=== PATIENT | female | born 1990 | race Caucasian/White ===

== ENCOUNTER 2019-09-06 10:32 | Emergency (ER) | payer BC, SELFPAY ==
[2019-09-06 10:35] VITALS: BP 130/79; PULSE 105; RESP 20; TEMP 36.4; O2SAT 97; BMI 20.9
--- NOTE | 2019-09-06 10:37 | ED_ITS ---
Entered by Karen Rodríguez, acting as scribe for Ravi Daigle MD HPI - Abdominal Pain General: Chief Complaint: Abdominal Pain Stated Complaint: Abd pain Time Seen by Provider: 09/06/19 10:35 Source: patient and family Mode of arrival: ambulatory Limitations: no limitations History of Present Illness: HPI narrative: 28 yo female presents with abdomen pain. pt states this started 3 days ago. pt states the pain was sudden and has not stopped. pt states nothing makes this better and movement makes this worse. pt has a hx of ovarian cyst, celiac repair at [facility]. MD elicited complaint: abdominal pain Onset (ago): day(s) (3 days) Location: Periumbilical Severity: moderate Migration to: periumbilical Exacerbating factors: movement Relieving factors: nothing Associated Symptoms: Denies chills, diarrhea, dysuria, fever(s), nausea and vomiting Review of Systems Const: Denies: fever, chills, body aches or change in appetite Eyes: Denies: blurry vision or eye discomfort ENMT: Denies: throat pain or dental pain Card: Denies: chest pain Resp: Denies: shortness of breath GI: Denies: nausea, vomiting or diarrhea : Denies: painful urination Musc: Denies: neck pain or back pain Skin/Breast: Denies: rash Neuro: Denies: headache Psych: Denies: depression [place]/Lymph: Denies: easy bruising All/Imm: Denies: hives PFSH ED PFSH: Statuses (acute, chronic, etc) shown below reflect problem list status as previously entered and may not be historically accurate Social History Smoking and tobacco status: never smoked Physical Exam Const: COMMON NORMALS: no apparent distress, oriented x3 and healthy appearing HENMT: COMMON NORMALS: normocephalic and head/scalp atraumatic HEAD & SCALP: normocephalic and atraumatic Eye: COMMON NORMALS: PERRL and EOMs intact bilaterally PUPIL: Yes PERRL Neck/C-Spine: COMMON NORMALS: full ROM and supple Chest: COMMONS NORMALS: inspection of chest normal and palpation of chest normal Resp: COMMON NORMALS: normal respiratory effort, no retractions, no use of accessory muscles and clear to auscultation bilaterally AUSCULTATION: clear to auscultation bilaterally Cardio: COMMON NORMALS: regular rate, regular rhythm and no murmurs RATE: regular rate RHYTHM: regular rhythm GI: OTHER: diffuse tenderness Extremity: COMMON NORMALS: normal to inspection and full ROM Neuro: COMMON NORMALS: oriented x3, moves all extremities and no focal motor deficits Psych: COMMON NORMALS: mental status grossly normal, thought process normal and cooperative THOUGHT PROCESS: normal thought process Skin: COMMON NORMALS: no rashes or lesions noted and no wounds GENERAL SKIN EXAM: no rashes or lesions noted Course Vital Signs: Vital signs: Vital Signs Temperature 97.4 F L 09/06/19 13:25 Pulse Rate 77 09/06/19 13:25 Respiratory Rate 16 09/06/19 13:25 Blood Pressure 130/74 09/06/19 13:25 Pulse Oximetry 99 09/06/19 13:25 MDM - Abdominal Pain 2 MDM Narrative: Medical decision making narrative: Patient presents here with abdominal pain. CT shows ovarian cyst with no signs of torsion here. Patient's lab work is normal and she is well-appearing. Patient is stable for discharge and is to return if worsening. Lab Data: Labs: Lab Results 09/06/19 09/06/19 09/06/19 Range/Units 11:00 11:00 11:13 WBC 5.1 (4.0-10.0) 10^3/ uL RBC 4.28 (4.1-5.3) 10^6/u L Hgb 13.3 (11.5-15.3) g/dL Hct 40.6 (37.0-47.0) % MCV 94.9 (81-99) fL MCH 31.1 (28.0-34.0) pg MCHC 32.8 (30.0-36.0) g/dL RDW 11.3 L (12.1-15.1) % Plt Count 191 (130-400) 10^3/c mm MPV 10.9 H (7.4-10.4) fL Neut % (Auto) 70.7 % Lymph % (Auto) 19.3 % [place] % (Auto) 8.6 % Eos % (Auto) 0.4 % Baso % (Auto) 0.8 % Neut # (Auto) 3.6 (1.8-7.7) 10^3/u L Lymph # (Auto) 1.0 (0.8-4.8) 10^3/u L [place] # (Auto) 0.4 (0.2-0.9) 10^3/u L Eos # (Auto) 0.0 (0.0-0.8) 10^3/u L Baso # (Auto) 0.0 (0.0-0.1) 10^3/u L Nucleated RBC % (a uto) 0 % Nucleated RBCs # 0.0 /100WBC Sodium (136-145) mmol/L Potassium (3.5-5.1) mmol/L Chloride (98-107) mmol/L Carbon Dioxide (22-29) mmol/L Anion Gap (5-19) BUN (6-20) mg/dL Creatinine (0.5-0.9) mg/dL GFR Calculation (90-130) mL/min Glucose (74-109) mg/dL Calcium (8.5-10.5) mg/dL Total Bilirubin (0.15-1.2) mg/dL AST (0-32) U/L ALT (0-33) U/L Alkaline Phosphata se (35-105) IU/L Total Protein (6.6-8.7) g/dL Albumin (3.5-5.2) g/dL Globulin (1.3-4.6) g/dL Lipase (13-60) U/L HCG, Qual Negative (Negative) Urine Color Yellow (Yellow) Urine Appearance Sl hazy (CLEAR) Urine pH 7 (5-7) Ur Specific Gravit y 1.010 (1.005-1.030) Urine Protein Neg (Negative) Urine Glucose (UA) Norm (Normal) Urine Ketones Negative (Negative) Urine Occult Blood Neg (Negative) Urine Nitrate Negative (Negative) Urine Bilirubin Neg (NEGATIVE) Urine Urobilinogen Norm (Negative) mg/dL Ur Leukocyte Melissa ase Negative (Negative) Urine RBC None (0-2) /hpf Urine WBC Rare (0-5) /hpf Ur Squamous Epith Cells 15-25 H (0-5) Urine Bacteria 1+ H (NONE) Urine Mucus 1+ 09/06/19 Range/Units 11:13 WBC (4.0-10.0) 10^3/ uL RBC (4.1-5.3) 10^6/u L Hgb (11.5-15.3) g/dL Hct (37.0-47.0) % MCV (81-99) fL MCH (28.0-34.0) pg MCHC (30.0-36.0) g/dL RDW (12.1-15.1) % Plt Count (130-400) 10^3/c mm MPV (7.4-10.4) fL Neut % (Auto) % Lymph % (Auto) % [place] % (Auto) % Eos % (Auto) % Baso % (Auto) % Neut # (Auto) (1.8-7.7) 10^3/u L Lymph # (Auto) (0.8-4.8) 10^3/u L [place] # (Auto) (0.2-0.9) 10^3/u L Eos # (Auto) (0.0-0.8) 10^3/u L Baso # (Auto) (0.0-0.1) 10^3/u L Nucleated RBC % (a uto) % Nucleated RBCs # /100WBC Sodium 141 (136-145) mmol/L Potassium 4.7 (3.5-5.1) mmol/L Chloride 104 (98-107) mmol/L Carbon Dioxide 24 (22-29) mmol/L Anion Gap 17.7 (5-19) BUN 9 (6-20) mg/dL Creatinine 0.8 (0.5-0.9) mg/dL GFR Calculation 86.7 L (90-130) mL/min Glucose 88 (74-109) mg/dL Calcium 9.9 (8.5-10.5) mg/dL Total Bilirubin 0.6 (0.15-1.2) mg/dL AST 15 (0-32) U/L ALT 10 (0-33) U/L Alkaline Phosphata se 63 (35-105) IU/L Total Protein 7.7 (6.6-8.7) g/dL Albumin 4.8 (3.5-5.2) g/dL Globulin 2.9 (1.3-4.6) g/dL Lipase 21 (13-60) U/L HCG, Qual (Negative) Urine Color (Yellow) Urine Appearance (CLEAR) Urine pH (5-7) Ur Specific Gravit y (1.005-1.030) Urine Protein (Negative) Urine Glucose (UA) (Normal) Urine Ketones (Negative) Urine Occult Blood (Negative) Urine Nitrate (Negative) Urine Bilirubin (NEGATIVE) Urine Urobilinogen (Negative) mg/dL Ur Leukocyte Melissa ase (Negative) Urine RBC (0-2) /hpf Urine WBC (0-5) /hpf Ur Squamous Epith Cells (0-5) Urine Bacteria (NONE) Urine Mucus Imaging Data ^: CT Chest: Radiologist's impression: Ordering Provider/Ordering MD: Ravi Daigle MD Date of Service: 09/06/19 Procedure(s): CT abdomen pelvis w con* [id number] Accession Number(s): [id number] Report Number: [id number] PROCEDURE INFORMATION: Exam: CT Abdomen And Pelvis With Contrast Exam date and time: 09/06/2019 10:47 AM Age: 28 years old Clinical indication: Abdominal pain; Prior surgery; Surgery type: Gb. Appy. Celiac; Patient HX: Generalized abd pain x 4 days TECHNIQUE: Imaging protocol: Computed tomography of the abdomen and pelvis with intravenous contrast. Total DLP: 540.58 mGy-cm Radiation optimization: All CT scans at this facility use at least one of these dose optimization techniques: automated exposure control; mA and/or kV adjustment per patient size (includes targeted exams where dose is matched to clinical indication); or iterative reconstruction. Contrast material: OMNI 300; Contrast volume: 95 ml; Contrast route: 20G; COMPARISON: CT abdomen pelvis w con* [id number] 03/24/2017 3:41 PM FINDINGS: Lungs: The visualized lung bases are grossly clear. Liver: No mass. Gallbladder and bile ducts: The gallbladder surgically absent. Interval decrease of intrahepatic and extrahepatic biliary ductal dilation. Pancreas: No ductal dilation. Spleen: No splenomegaly. Adrenals: No mass. Kidneys and ureters: No hydronephrosis. Stomach and bowel: There are multiple nondilated fluid-filled loops of small bowel with mild wall thickening. Appendix: The appendix is not visualized and surgically absent per report. Intraperitoneal space: No free air. No significant fluid collection. Vasculature: Unchanged soft tissue attenuation at the level of the celiac artery with atherosclerotic calcifications and adjacent left periaortic metallic clip. Lymph nodes: There are scattered non-patholigically enlarged mesenteric lymph nodes, which may be reactive. Bladder: Unremarkable as visualized. Reproductive: There is an ovoid 2.1 cm hypodense focus with peripheral enhancement within the right adnexa, likely within the right ovary (image 70, series 2). Bones/joints: There are no acute osseous findings. Soft tissues: Unremarkable. CT/CT abdomen pelvis w con* [id number] IMPRESSION: 1. Scattered nondilated fluid-filled loops of small bowel with mild scattered wall thickening. Findings can be seen with nonspecific enteritis. There is no evidence of bowel obstruction. 2. Scattered non-patholigically enlarged mesenteric lymph nodes, which may be reactive or refelct a component of mesenteric adenitis. 3. Ovoid 2.1 cm hypodense focus with peripheral enhancement within the right adnexa, likely reflecting a cyst within the right ovary. If right adnexal symptoms are present, ultrasound could be performed. 4. Additional findings as detailed above. Discharge Plan Discharge Patient Disposition: Home, Self-Care Clinical Impression: Ovarian cyst Abdominal pain Qualifiers: Abdominal location: right lower quadrant Qualified Code(s): R10.31 - Right lower quadrant pain Condition: Stable Prescriptions: New Zofran 4 mg tablet 4 mg PO QID PRN (Reason: nausea and vomiting) Qty: 14 RF: 0 Tylenol-Codeine #3 300-30 mg tablet 1 tab PO Q8H PRN (Reason: pain) Qty: 20 RF: 0 No Action clindamycin phosphate 1 % swab 1 applic TOPICAL BID RF: 0 Vitamin D2 1,250 mcg (50,000 unit) capsule 50,000 unit PO Q7D RF: 0 Discharge Orders: Discharge Order (Routine); Ordered 09/06/19 Ordered By: Ravi Daigle Referrals: Bill Philippe FNP [Primary Care Provider] - William Genao MD [Family Provider] - 4-7 days Discharge Diet: Advance as tolerated Discharge Activity: Resume usual activity Patient Instructions: Ovarian Cyst (ED), Abdominal Pain (ED) Discharge Date/Time: 09/06/19 13:25 Coding Level of Care Code ED Digital Media Specialist for Chg Fwd Exam Problem Focused The documentation recorded by the Marcos moran Bridget Annette, accurately reflects the service I personally performed and the decisions made by Oxana pickett Korby, MD Sep 06, 2019 10:32
--- NOTE | 2019-09-06 10:40 | CTR_ITS ---
PROCEDURE INFORMATION: Exam: CT Abdomen And Pelvis With Contrast Exam date and time: 09/06/2019 10:47 AM Age: 28 years old Clinical indication: Abdominal pain; Prior surgery; Surgery type: Gb. Appy. Celiac; Patient HX: Generalized abd pain x 4 days TECHNIQUE: Imaging protocol: Computed tomography of the abdomen and pelvis with intravenous contrast. Total DLP: 540.58 mGy-cm Radiation optimization: All CT scans at this facility use at least one of these dose optimization techniques: automated exposure control; mA and/or kV adjustment per patient size (includes targeted exams where dose is matched to clinical indication); or iterative reconstruction. Contrast material: OMNI 300; Contrast volume: 95 ml; Contrast route: 20G; COMPARISON: CT abdomen pelvis w con* [id number] 03/24/2017 3:41 PM FINDINGS: Lungs: The visualized lung bases are grossly clear. Liver: No mass. Gallbladder and bile ducts: The gallbladder surgically absent. Interval decrease of intrahepatic and extrahepatic biliary ductal dilation. Pancreas: No ductal dilation. Spleen: No splenomegaly. Adrenals: No mass. Kidneys and ureters: No hydronephrosis. Stomach and bowel: There are multiple nondilated fluid-filled loops of small bowel with mild wall thickening. Appendix: The appendix is not visualized and surgically absent per report. Intraperitoneal space: No free air. No significant fluid collection. Vasculature: Unchanged soft tissue attenuation at the level of the celiac artery with atherosclerotic calcifications and adjacent left periaortic metallic clip. Lymph nodes: There are scattered non-patholigically enlarged mesenteric lymph nodes, which may be reactive. Bladder: Unremarkable as visualized. Reproductive: There is an ovoid 2.1 cm hypodense focus with peripheral enhancement within the right adnexa, likely within the right ovary (image 70, series 2). Bones/joints: There are no acute osseous findings. Soft tissues: Unremarkable. CT/CT abdomen pelvis w con* [id number] IMPRESSION: 1. Scattered nondilated fluid-filled loops of small bowel with mild scattered wall thickening. Findings can be seen with nonspecific enteritis. There is no evidence of bowel obstruction. 2. Scattered non-patholigically enlarged mesenteric lymph nodes, which may be reactive or refelct a component of mesenteric adenitis. 3. Ovoid 2.1 cm hypodense focus with peripheral enhancement within the right adnexa, likely reflecting a cyst within the right ovary. If right adnexal symptoms are present, ultrasound could be performed. 4. Additional findings as detailed above. Radiation Dose CTDIVOL = (mGy): DLP = 540.58 (mGy-cm)
[2019-09-06 11:09] LABS: HCG Qualitative Urine. Negative (Negative)
[2019-09-06] MEDS: sodium chloride 0.9% 1,000 ML 999 ML IV (11:20)
[2019-09-06 11:21] LABS: Basophils % 0.8 %; Eosinophils % 0.4 %; Hematocrit 40.6 % (37.0-47.0); Hemoglobin 13.3 g/dL (11.5-15.3); Lymphocytes % 19.3 %; Mean Corpuscular HGB Conc 32.8 g/dL (30.0-36.0); Mean Corpuscular Hemoglobin 31.1 pg (28.0-34.0); Mean Corpuscular Volume 94.9 fL (81-99); Mean Platelet Volume 10.9 fL (7.4-10.4); Monocytes # 0.4 10^3/uL (0.2-0.9); Monocytes % 8.6 %; Neutrophils # 3.6 10^3/uL (1.8-7.7); Neutrophils % 70.7 %; Nucleated Red Blood Cells % 0 %; Platelet Count 191 10^3/cmm (130-400); Red Blood Count 4.28 10^6/uL (4.1-5.3); Red Cell Distribution Width 11.3 % (12.1-15.1); White Blood Count 5.1 10^3/uL (4.0-10.0)
[2019-09-06] MEDS: ondansetron 2 mg/ML SDV 2 mL 4 MG IVP (11:26)
[2019-09-06] MEDS: iohexol 300 mg/mL 100 mL Btl IV (11:32)
[2019-09-06 11:38] LABS: Add Urine Microscopic? YES; Bilirubin Urine Neg (NEGATIVE); Blood Urine Neg (Negative); Glucose Urine UA Norm (Normal); Ketones Urine Negative (Negative); Leukocyte Esterase Urine Negative (Negative); Nitrate Urine Negative (Negative); Protein Urine Neg (Negative); Urine Appearance SL Hazy (CLEAR); Urine Color Yellow (Yellow); Urobilinogen Urine Norm (Negative); pH Urine 7 (5-7)
[2019-09-06 11:38] LABS: Alanine Aminotransferase 10 U/L (0-33); Albumin Level 4.8 g/dL (3.5-5.2); Alkaline Phosphatase 63 IU/L (35-105); Anion Gap 17.7 (5-19); Aspartate Amino Transferase 15 U/L (0-32); Blood Urea Nitrogen 9 mg/dL (6-20); Calcium 9.9 mg/dL (8.5-10.5); Carbon Dioxide 24 mmol/L (22-29); Chloride 104 mmol/L (98-107); Globulin 2.9 g/dL (1.3-4.6); Glomerular Filtration Rate 86.7 mL/min (90-130); Glucose 88 mg/dL (74-109); Lipase 21 U/L (13-60); Potassium 4.7 mmol/L (3.5-5.1); Sodium 141 mmol/L (136-145); Total Bilirubin 0.6 mg/dL (0.15-1.2); Total Protein 7.7 g/dL (6.6-8.7)
[2019-09-06 11:39] LABS: Bacteria Urine 1+; Mucus Urine 1+; Squamous Epithelial Cell Urine 15-25 (0-5); WBC Urine RARE /hpf (0-5)
[2019-09-06 11:40] LABS: Add Urine Culture? No
[2019-09-06 12:15] VITALS: BP 130/79; PULSE 72; RESP 16; TEMP 36.4; O2SAT 98
[2019-09-06] MEDS: promethazine 25 mg/mL SDV 1 mL IV (13:18)
[2019-09-06 13:25] VITALS: BP 130/74; PULSE 77; RESP 16; TEMP 36.3; O2SAT 99
== END 2019-09-06 13:25 | disposition home or self-care (01) ==
PROVIDERS: Emergency Provider Emergency Medicine; Family Provider Family Medicine; PCP Nurse Practitioner Family
DX: N83.201 Unspecified ovarian cyst, right side (principal)
CPT/HCPCS: 36415; 74177; 80053; 81001; 81025; 83690; 85025; 96360; 96361; 96365; 96374; 96375; 99282; 99283; A9270; J0131; J2405; J2550; J7030; Q9967

== ENCOUNTER → 2019-10-01 08:41 | Outpatient (BNVA) | payer BC, SELFPAY | PROVIDERS: Family Provider Family Medicine; PCP Nurse Practitioner Family; Visit Provider Registered Nurse | DX: R69 Illness, unspecified (principal); R09.81 Nasal congestion; R68.89 Other general symptoms and signs | CPT/HCPCS: 87804 ==

== ENCOUNTER 2021-04-03 09:37 | Outpatient (CLI) | payer BC, SELFPAY ==
[2021-04-03 09:57] LABS: D Dimer 0.48 ug/mIFEU (0-0.59)
== END 2021-04-03 09:38 | disposition home or self-care (01) ==
PROVIDERS: PCP Family Medicine; Visit Provider Nurse Practitioner Family
DX: R06.02 Shortness of breath (principal)
CPT/HCPCS: 85378

== ENCOUNTER 2021-11-07 11:18 | Emergency (ER) | payer BC, SELFPAY ==
[2021-11-07 11:24] VITALS: BP 136/73; PULSE 143; RESP 24; TEMP 36.8; O2SAT 96; BMI 21.1
--- NOTE | 2021-11-07 11:31 | CT_ITS ---
WS: [id number] CT ABDOMEN PELVIS TECHNIQUE: Contrast-enhanced CT of the abdomen and pelvis with coronal and sagittal reformatted image s. CLINICAL INFORMATION: eval for pathologies COMPARISON: CT September 24, 2019 DLP: 954.[address] scans at [facility] use at least one of these dose optimization techniques: automated e xposure control; mA and/or kV adjustment per patient size (includes targeted exams where dose is matc hed to clinical indication); or iterative reconstruction. FINDINGS: Prior cholecystectomy and appendectomy. Mild diffuse fatty infiltration liver. Mild intrahepatic bili yoan ductal dilatation. This is likely physiologic postcholecystectomy. Mild prominence of the common bile duct measuring 7.8 mm. Normal portal vein and splenic vein. Normal pancreatic parenchymal enhanc ement. Normal spleen. Lung bases are well aerated. Air-fluid level in the stomach. Fluid-filled distended loops of small bowel within the pelvis. Findings can be seen with mild small b owel enteritis. No evidence of high-grade obstruction. Mild constipation in the cecum. Colon is decom pressed. Normal sigmoid colon. LEFT ovarian cyst measuring 3.1 x 3.3 CM. Small amount of fluid in the cul-de-sac. Retroflexed uterus. Celiac artery stent. Celiac and SMA appear patent. CT/CT abdomen pelvis w con* [id number] IMPRESSION: 1. A few slightly distended fluid-filled loops of small bowel in the pelvis ca n be seen with small bowel enteritis. No evidence of high-grade obstruction. A few air-fluid levels. 2. Peripherally enhancing LEFT ovarian cyst measuring 3.3 x 3.1 CM. Small amou nt of free fluid in the cul-de-sac. 3. Retroflexed uterus. 4. Mild diffuse fatty infiltration of the liver. 5. Prior cholecystectomy. Dilatation common bile duct likely physiologic postc holecystectomy. 6. Celiac artery stent. Celiac and SMA appear patent. 7. No hydronephrosis in either kidney.
--- NOTE | 2021-11-07 11:40 | W.ED.GENADLT ---
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 Patient was at home when pain started. Patient describing a stabbing intermittent colicky pain that has been persistent and nonrelieving. Patient denies any nausea/vomiting diarrhea, melena/hematochezia. Patient has not had any stool or bowel movement since yesterday. Patient denies any similar pain the past for denies any chest pain, shortness of breath and palpitations. Onset: 9pm Duration:15 hrs Location:home Severity:moderate Associated symptoms: Deny chest pain, dyspnea, nausea, rash, palpitations or vomiting Review of Systems Const: Denies: fever(s) or chills Eyes: Denies: change in vision ENMT: Denies: mouth pain Card: Denies: chest pain or palpitations Resp: Denies: dyspnea or non-productive cough GI: Reports: abdominal pain; Denies: nausea, vomiting or diarrhea : Denies: dysuria Musc: Denies: extremity pain Skin/Breast: Denies: rash or new lesions Neuro: Denies: weakness in extremities Psych: Reports: other (Normal mood) Crispin/Lymph: Denies: easy bruising PFSH ED PFSH: Medical History No pertinent past medical history neghx: htn,dm,thyroid,PE/DVT Surgical History History of laparotomy (~2008) graft replaced median arcuate ligament Hx of appendectomy (~2012) Hx of cholecystectomy (~2014) Hx of laparoscopy (~2008) release of median arcuate ligament Family History Mother Hypertension Father Hypertension Grandmother Hypertension Maternal Denies family history of Colon cancer Ovarian cancer Diabetes Heart disease Breast cancer Bleeding disorder Uterine cancer Thyroid disease Stroke Social History Additional social history: - Tobacco use: Never Alcohol use: Never Drug use: Never Physical Exam Const: COMMON NORMALS: alert HENMT: COMMON NORMALS: atraumatic HEAD & SCALP: atraumatic MOUTH: moist mucous membranes not abnormal Eye: COMMON NORMALS: EOMs intact bilaterally and conjunctivae normal CONJUNCTIVA: Yes conjunctivae normal Neck/C-Spine: COMMON NORMALS: full ROM and supple Resp: COMMON NORMALS: normal respiratory effort and clear to auscultation bilaterally AUSCULTATION: clear to auscultation bilaterally Cardio: COMMON NORMALS: regular rate RATE: regular rate GI: COMMON NORMALS: Soft to palpation PALPATION: Yes Soft to palpation OTHER: +generalized abd TTP. +voluntary guarding. NO guarding rebound, guarding, rigidity. No CVA tenderness to percussion. Neg Wolf/Neg McBurney's point tenderness, no suprabupic tenderness to palpation. Extremity: COMMON NORMALS: full ROM Neuro: SENSORIUM/ORIENTATION: Yes alert MOTOR EXAM: No Abnormal motor strength present and Other motor observations present (no focal motor deficits) Psych: COMMON NORMALS: speech normal SPEECH: Yes normal speech MOOD & AFFECT: Yes euthymic mood Course Vital Signs: Vital signs: Vital Signs Temperature 98.2 F 11/07/21 11:24 Pulse Rate 143 H 11/07/21 11:24 Respiratory Rate 22 H 11/07/21 12:00 Blood Pressure 136/73 11/07/21 11:24 Pulse Oximetry 96 11/07/21 11:[address] [facility] - General Adult Medical Decision Making 30-year-old female with history of prior cholecystectomy, prior appendectomy, prior ex lap, intussusception presenting to the emergency room for evaluation of generalized abdominal pain since 9 PM yesterday. On physical exam, patient has diffuse tenderness palpation globally in the abdomen. Patient has voluntary guarding without any involuntary guarding rebound tenderness. Bedside ultrasound did not show positive fast or free air. Patient received morphine IVF with significant improvement in heart rate. CT abdomen pelvis showed small bowel enteritis. Patient's heart rate improved with 2 L of fluid. Patient is no able to tolerate p.o. after GI cocktail. Patient reports that her abdominal pain has improved. Rx tylenol PRN abd pain, maalox/pepcid PRN dyspepsia, and zofran PRN nausea/vomiting Disposition: Discharge. Patient counseled regarding diagnostic impression, treatment plan. Patient given ED strict return precautions to return for continuation, worsening, or development of new symptoms. Instructed to f/u w/ PCP regarding symptoms today. Patient verbalized understanding. Lab Data : 11/07/21 11:53 11/07/21 11:53 Radiology Impressions Abdomen/Pelvis CT 11/07/21 11:31 IMPRESSION: 1. A few slightly distended fluid-filled loops of small bowel in the pelvis can be seen with small bowel enteritis. No evidence of high-grade obstruction. A few air-fluid levels. 2. Peripherally enhancing LEFT ovarian cyst measuring 3.3 x 3.1 CM. Small amount of free fluid in the cul-de-sac. 3. Retroflexed uterus. 4. Mild diffuse fatty infiltration of the liver. 5. Prior cholecystectomy. Dilatation common bile duct likely physiologic postcholecystectomy. 6. Celiac artery stent. Celiac and SMA appear patent. 7. No hydronephrosis in either kidney. Laboratory Results WBC 8.6 10^3/uL (4.0-10.0) 11/07/21 11:53 RBC 4.56 10^6/uL (4.1-5.3) 11/07/21 11:53 Hgb 14.9 g/dL (11.5-15.3) 11/07/21 11:53 Hct 43.5 % (37.0-47.0) 11/07/21 11:53 MCV 95.4 fl (81-99) 11/07/21 11:53 MCH 32.7 pg (28.0-34.0) 11/07/21 11:53 MCHC 34.3 g/dL (30.0-36.0) 11/07/21 11:53 RDW 11.9 % (12.1-15.1) L 11/07/21 11:53 Plt Count 174 10^3/cmm (130-400) 11/07/21 11:53 MPV 10.9 fL (7.4-10.4) H 11/07/21 11:53 Neut % (Auto) 90.7 % 11/07/21 11:53 Lymph % (Auto) 3.0 % 11/07/21 11:53 [place] % (Auto) 5.6 % 11/07/21 11:53 Eos % (Auto) 0.1 % 11/07/21 11:53 Baso % (Auto) 0.2 % 11/07/21 11:53 Neut # (Auto) 7.77 10^3/uL (1.8-7.7) H 11/07/21 11:53 Lymph # (Auto) 0.3 10^3/uL (0.8-4.8) L 11/07/21 11:53 [place] # (Auto) 0.5 10^3/uL (0.2-0.9) 11/07/21 11:53 Eos # (Auto) 0.0 10^3/uL (0.0-0.8) 11/07/21 11:53 Baso # (Auto) 0.0 10^3/uL (0.0-0.1) 11/07/21 11:53 Nucleated RBC % (auto) 0 % 11/07/21 11:53 Nucleated RBCs # 0.0 /100WBC 11/07/21 11:53 Sodium 138 mmol/L (136-145) 11/07/21 11:53 Potassium 3.7 mmol/L (3.5-5.1) 11/07/21 11:53 Chloride 106 mmol/L (98-107) 11/07/21 11:53 Carbon Dioxide 19 mmol/L (22-29) L 11/07/21 11:53 Anion Gap 16.7 (5-19) 11/07/21 11:53 BUN 11 mg/dL (6-20) 11/07/21 11:53 Creatinine 0.7 mg/dL (0.5-0.9) 11/07/21 11:53 GFR Calculation 99.6 mL/min (90-130) 11/07/21 11:53 Glucose 106 mg/dL (65-115) 11/07/21 11:53 Calculated Osmolality 286 mOsm/kg (285-295) 11/07/21 11:53 Lactate 0.9 mmol/L (0.5-2.2) 11/07/21 12:30 Calcium 8.7 mg/dL (8.5-10.5) 11/07/21 11:53 Total Bilirubin 1.0 mg/dL (0.15-1.2) 11/07/21 11:53 AST 92 U/L (0-32) H 04/05/22 11:53 ALT 45 U/L (0-33) H 11/07/21 11:53 Alkaline Phosphatase 84 IU/L (35-105) 11/07/21 11:53 Total Protein 6.7 g/dL (6.6-8.7) 11/07/21 11:53 Albumin 4.5 g/dL (3.5-5.2) 11/07/21 11:53 Globulin 2.2 g/dL (1.3-4.6) 11/07/21 11:53 Lipase 21 U/L (13-60) 11/07/21 11:53 HCG, Qual Negative (Negative) 11/07/21 11:53 Discharge Plan Discharge Clinical Impression: Abdominal pain Condition: Stable Prescriptions: No Action [place] 5-325 mg Tablet 1 tab PO .ONCE 0RF minocycline 100 mg capsule 100 mg PO QPM 0RF Aleve 220 mg Tablet 440 mg PO Q12H PRN (Reason: Pain) 0RF Vitamin D3 125 mcg (5,000 unit) Tablet 125 mcg PO QPM 0RF Referrals: William Genao MD [Primary Care Provider] - Patient Instructions: Abdominal Pain (ED) Coding Level of Care Code ED Assistant Boiler Operator for Chg Fwd Exam Comprehensive
[2021-11-07] MEDS: sodium chloride 0.9% 1,000 ML 999 ML IV ×2 (11:45→13:00)
[2021-11-07 12:00] VITALS: RESP 22
[2021-11-07] MEDS: ondansetron 2 mg/ML SDV 2 mL 4 MG IVP (12:00)
[2021-11-07] MEDS: morphine 4 mg/mL SDV 1 mL IVP (12:00)
[2021-11-07 12:06] LABS: Basophils % 0.2 %; Eosinophils % 0.1 %; Hematocrit 43.5 % (37.0-47.0); Hemoglobin 14.9 g/dL (11.5-15.3); Lymphocytes # 0.3 10^3/uL (0.8-4.8); Mean Corpuscular HGB Conc 34.3 g/dL (30.0-36.0); Mean Corpuscular Hemoglobin 32.7 pg (28.0-34.0); Mean Corpuscular Volume 95.4 fl (81-99); Mean Platelet Volume 10.9 fL (7.4-10.4); Monocytes # 0.5 10^3/uL (0.2-0.9); Monocytes % 5.6 %; Neutrophils # 7.77 10^3/uL (1.8-7.7); Neutrophils % 90.7 %; Nucleated Red Blood Cells % 0 %; Platelet Count 174 10^3/cmm (130-400); Red Blood Count 4.56 10^6/uL (4.1-5.3); Red Cell Distribution Width 11.9 % (12.1-15.1); White Blood Count 8.6 10^3/uL (4.0-10.0)
[2021-11-07 12:32] LABS: HCG, Serum Qual Negative (Negative)
[2021-11-07 12:42] LABS: Alanine Aminotransferase 45 U/L (0-33); Albumin Level 4.5 g/dL (3.5-5.2); Alkaline Phosphatase 84 IU/L (35-105); Anion Gap 16.7 (5-19); Aspartate Amino Transferase 92 U/L (0-32); Blood Urea Nitrogen 11 mg/dL (6-20); Calcium 8.7 mg/dL (8.5-10.5); Carbon Dioxide 19 mmol/L (22-29); Chloride 106 mmol/L (98-107); Creatinine Clr Calc Pharmacy 116.0798; Globulin 2.2 g/dL (1.3-4.6); Glomerular Filtration Rate 99.6 mL/min (90-130); Glucose 106 mg/dL (65-115); Lipase 21 U/L (13-60); Osmolality Calculated 286 mOsm/kg (285-295); Potassium 3.7 mmol/L (3.5-5.1); Sodium 138 mmol/L (136-145); Total Protein 6.7 g/dL (6.6-8.7)
[2021-11-07] MEDS: iohexol 300 mg/mL 100 mL Btl IV (12:49)
[2021-11-07 12:56] LABS: Lactate (Lactic Acid level) 0.9 mmol/L (0.5-2.2)
[2021-11-07 13:49] VITALS: BP 109/59; PULSE 118; RESP 20; O2SAT 96
[2021-11-07] MEDS: lidocaine 2% viscous 15 ML, aluminum-mag hydrox-simethicon 30 ML, sucralfate oral liq 1 GM PO (13:52)
[2021-11-07 14:20] VITALS: BP 112/56; PULSE 107; RESP 15; O2SAT 97
[2021-11-07 14:38] VITALS: BP 105/59; PULSE 87; RESP 14; O2SAT 96
[2021-11-07 14:42] VITALS: BP 105/59; PULSE 98; RESP 13; O2SAT 97
[2021-11-07 15:00] LABS: Urine Appearance Clear (CLEAR); Urine Color Yellow (Yellow)
[2021-11-07 15:01] LABS: Add Urine Culture? No; Add Urine Microscopic? YES; Bilirubin Urine 1+ (Negative); Blood Urine Neg (Negative); Glucose Urine UA Norm (Normal); Ketones Urine 2+ (Negative); Leukocyte Esterase Urine Negative (Negative); Nitrate Urine Negative (Negative); Protein Urine Trace (Negative); Specific Gravity, Urine 1.005 (1.005-1.030); Urobilinogen Urine 4 mg/dL (Negative); pH Urine 6.5 (5-7)
== END 2021-11-07 14:51 | disposition home or self-care (01) ==
PROVIDERS: Emergency Provider Emergency Medicine; PCP Family Medicine
DX: R10.84 Generalized abdominal pain (principal); K76.0 Fatty (change of) liver, not elsewhere classified; N83.202 Unspecified ovarian cyst, left side; Z90.49 Acquired absence of other specified parts of digestive tract
CPT/HCPCS: 74177; 80053; 81001; 83605; 83690; 84703; 85025; 96361; 96374; 96375; 99284; J2270; J2405; J7030; Q9967

== ENCOUNTER → 2021-11-08 11:12 | Outpatient (BNVA) | payer BC, SELFPAY | PROVIDERS: PCP Family Medicine; Visit Provider Registered Nurse | DX: K52.9 Noninfective gastroenteritis and colitis, unspecified (principal) | CPT/HCPCS: 87493; 87506 ==

== ENCOUNTER 2021-11-11 15:30 | Inpatient (IN) | payer BC, SELFPAY ==
[2021-11-11 15:37] VITALS: BP 107/65; PULSE 110; RESP 22; TEMP 36.6; O2SAT 97; BMI 21.1
--- NOTE | 2021-11-11 15:51 | CTR_ITS ---
PROCEDURE INFORMATION: Exam: CT Abdomen And Pelvis With Contrast Exam date and time: 11/11/2021 4:44 PM Age: 30 years old Clinical indication: Abdominal pain; Generalized; Prior surgery; Surgery date: 6+ months; Surgery type: Gb, appy; Patient HX: C/O abd pain x 1 week TECHNIQUE: Imaging protocol: Computed tomography of the abdomen and pelvis with contrast. Radiation optimization: All CT scans at this facility use at least one of these dose optimization techniques: automated exposure control; mA and/or kV adjustment per patient size (includes targeted exams where dose is matched to clinical indication); or iterative reconstruction. Contrast material: OMNI 300; Contrast volume: 95 ml; Contrast route: INTRAVENOUS (IV); COMPARISON: CT abdomen pelvis w con* [id number] 11/07/2021 12:49 PM RADIATION DOSE METRICS: Total DLP (mGy-cm): 943.46 FINDINGS: Tubes, catheters and devices: Surgical clip in the upper left retropharyngeal space. Liver: Normal. No mass. Gallbladder and bile ducts: Cholecystectomy. Stable mild dilatation of the intrahepatic and extrahepatic bile ducts is most likely reservoir effect. The common bile duct measures 8 mm in diameter. Pancreas: Normal. No ductal dilation. Spleen: Normal. No splenomegaly. Adrenal glands: Normal. No mass. Kidneys and ureters: Normal. No hydronephrosis. Stomach and bowel: Fluid-filled loops of distal small bowel with a few small air-fluid levels. No obstruction or wall thickening. The stomach and colon are unremarkable. Appendix: The appendix is absent. Intraperitoneal space: Unremarkable. No free air. No significant fluid collection. Arteries: Unremarkable. No abdominal aortic aneurysm. Lymph nodes: Unremarkable. No enlarged lymph nodes. Urinary bladder: Unremarkable as visualized. Reproductive: Tampon in the vagina. 2.0 cm fibroid in the lower right uterine segment. 2.4 cm dominant left ovarian follicle, Hounsfield units less than 20. The right ovary is unremarkable. Bones/joints: Unremarkable. No acute fracture. Soft tissues: Linear radiopaque density along the superior margin of the proximal celiac artery could relate to previous median arcuate ligament release. No significant stenosis. CT/CT abdomen pelvis w con* [id number] IMPRESSION: 1. Fluid-filled loops of distal small bowel is nonspecific. Mild enteritis is not excluded. 2. Otherwise no acute abnormality identified.
--- NOTE | 2021-11-11 15:53 | W.ED.ABDPA2 ---
HPI - Abdominal Pain General: Chief Complaint: Abdominal Pain Stated Complaint: severe abdominal pain Time Seen by Provider: 11/11/21 15:36 Source: patient Mode of arrival: ambulatory Limitations: no limitations History of Present Illness: 30-year-old female presents emergency room with complaints of abdominal pain persistent nausea with some vomiting persistent diarrhea denies any hematochezia. She denies any dysuria urgency or frequency. She was seen [address] showed some mild enteritis and she was started on minocycline. She states while it was not on her allergy list she evidently had had problems with it before so she had a telehealth visit with her primary care nurse practitioner and was changed to Flagyl. She continues to have persistent diarrhea nausea and vomiting. At the time of the telehealth visit patient had stool cultures done all of which have resulted as well as the C. difficile and all of which are negative. No fever sweats chills patient complaining of severe cramping. On 11/07 when she was here her transaminases were slightly elevated but her T bili was normal. MD elicited complaint: abdominal pain Onset (ago): day(s) (-) Pain Consistency: constant Location: Diffuse Severity: severe Quality: cramping Radiation: none Migration to: no migration Exacerbating factors: nothing Relieving factors: nothing Associated Symptoms: Reports anorexia, bloating, GI cramping, diarrhea, nausea and poor appetite; Denies belching, change in bowel habits, change in stool character, chills, coffee ground emesis, constipation, dyspepsia, dysuria, excessive flatus, fever(s), heartburn, hematochezia, hematuria, hematemesis, fecal incontinence, loose stools, melena, syncope and vomiting Review of Systems Const: Reports: body aches, change in appetite, fatigue and malaise; Denies: fever(s) or chills ENMT: Denies: throat pain, ear or mastoid pain, nasal discharge or nasal congestion Card: Denies: chest pain or syncope Resp: Denies: dyspnea, productive cough or non-productive cough GI: Reports: abdominal pain, nausea, diarrhea, bloating and GI cramping; Denies: vomiting, hematemesis, coffee ground emesis, heartburn, constipation, belching, excessive flatus, fecal incontinence, change in bowel habits, change in stool character, hematochezia or melena : Denies: flank pain, difficulty voiding, dysuria, urinary frequency, urinary urgency or hematuria Skin/Breast: Denies: rash or pruritus PFSH ED PFSH: Medical History No pertinent past medical history neghx: htn,dm,thyroid,PE/DVT Surgical History History of laparotomy (~2008) graft replaced median arcuate ligament Hx of appendectomy (~2012) Hx of cholecystectomy (~2014) Hx of laparoscopy (~2008) release of median arcuate ligament Family History Mother Hypertension Father Hypertension Grandmother Hypertension Maternal Denies family history of Colon cancer Ovarian cancer Diabetes Heart disease Breast cancer Bleeding disorder Uterine cancer Thyroid disease Stroke Social History Additional social history: - Tobacco use: Never Alcohol use: Never Drug use: Never Physical Exam Const: COMMON NORMALS: no acute distress GENERAL APPEARANCE: cooperative and comfortable ORIENTATION/CONSCIOUSNESS: Yes awake, Yes oriented to person, Yes oriented to place and Yes oriented to time HENMT: COMMON NORMALS: normocephalic, atraumatic and hearing grossly normal bilaterally HEAD & SCALP: normocephalic and atraumatic Neck/C-Spine: COMMON NORMALS: no JVD Resp: COMMON NORMALS: normal respiratory effort, No retractions, No use of accessory muscles and clear to auscultation bilaterally AUSCULTATION: clear to auscultation bilaterally Cardio: COMMON NORMALS: no JVD, regular rate, regular rhythm and No murmurs present (Cardio) RATE: regular rate RHYTHM: regular rhythm GI: COMMON NORMALS: No hepatosplenomegaly present AUSCULTATION: Yes Hyperactive bowel sounds present PALPATION: Yes Tenderness to palpation present (GI) (Diffuse), No Guarding due to palpation present (GI) and Yes No hepatosplenomegaly present : COMMON NORMALS: Yes no CVA tenderness BLADDER/KIDNEY EXAM: Yes no CVA tenderness Back/Pelvis: COMMON NORMALS: no CVA tenderness Extremity: COMMON NORMALS: normal to inspection, capillary refill normal, no clubbing, cyanosis or edema, no calf tenderness and no pedal edema Neuro: SENSORIUM/ORIENTATION: Yes oriented to person, Yes oriented to place and Yes oriented to time Skin: COMMON NORMALS: no rashes or lesions noted GENERAL SKIN EXAM: no rashes or lesions noted Course Vital Signs: Vital signs: Vital Signs Temperature 98.2 F 11/12/21 20:00 Pulse Rate 70 11/12/21 20:00 Respiratory Rate 17 11/12/21 20:00 Blood Pressure 106/69 11/12/21 20:00 Pulse Oximetry 96 11/12/21 20:00 MDM - Abdominal Pain Medical Decision Making Patient continues to have severe abdominal pain and cramping given her several liters of fluid as well as morphine and antiemetics. CT is unremarkable her ALT is slightly increased but her AST has improved her T bili remains normal. Stool cultures and C. difficile done 3 days ago are unremarkable. She is afebrile at this time. After discussion with her we will go ahead and put her on observation clear liquid diet IV fluids and pain medications as needed discussed with hospitalist orders written to place in observation Medical Records I reviewed the patient's medical records. Lab Data I reviewed the patient's lab results. : 11/12/21 03:25 11/12/21 03:25 Labs/Radiology: Radiology Impressions Abdomen/Pelvis CT 11/11/21 15:51 IMPRESSION: 1. Fluid-filled loops of distal small bowel is nonspecific. Mild enteritis is not excluded. 2. Otherwise no acute abnormality identified. Laboratory Results WBC 2.9 10^3/uL (4.0-10.0) L 11/11/21 16:05 RBC 4.31 10^6/uL (4.1-5.3) 11/11/21 16:05 Hgb 13.7 g/dL (11.5-15.3) 11/11/21 16:05 Hct 40.5 % (37.0-47.0) 11/11/21 16:05 MCV 94.0 fl (81-99) 11/11/21 16:05 MCH 31.8 pg (28.0-34.0) 11/11/21 16:05 MCHC 33.8 g/dL (30.0-36.0) 11/11/21 16:05 RDW 11.7 % (12.1-15.1) L 11/11/21 16:05 Plt Count 208 10^3/cmm (130-400) 11/11/21 16:05 MPV 11.0 fL (7.4-10.4) H 11/11/21 16:05 Neut % (Auto) 55.5 % 11/11/21 16:05 Lymph % (Auto) 26.2 % 11/11/21 16:05 [place] % (Auto) 16.2 % 11/11/21 16:05 Eos % (Auto) 1.4 % 11/11/21 16:05 Baso % (Auto) 0.7 % 11/11/21 16:05 Neut # (Auto) 1.61 10^3/uL (1.8-7.7) L 11/11/21 16:05 Lymph # (Auto) 0.8 10^3/uL (0.8-4.8) 11/11/21 16:05 [place] # (Auto) 0.5 10^3/uL (0.2-0.9) 11/11/21 16:05 Eos # (Auto) 0.0 10^3/uL (0.0-0.8) 11/11/21 16:05 Baso # (Auto) 0.0 10^3/uL (0.0-0.1) 11/11/21 16:05 Nucleated RBC % (auto) 0 % 11/11/21 16:05 Nucleated RBCs # 0.0 /100WBC 11/11/21 16:05 Sodium 138 mmol/L (136-145) 11/11/21 16:05 Potassium 3.9 mmol/L (3.5-5.1) 11/11/21 16:05 Chloride 103 mmol/L (98-107) 11/11/21 16:05 Carbon Dioxide 25 mmol/L (22-29) 11/11/21 16:05 Anion Gap 13.9 (5-19) 11/11/21 16:05 BUN 8 mg/dL (6-20) 11/11/21 16:05 Creatinine 0.8 mg/dL (0.5-0.9) 11/11/21 16:05 GFR Calculation 85.4 mL/min (90-130) L 11/11/21 16:05 Glucose 90 mg/dL (65-115) 11/11/21 16:05 Calculated Osmolality 284 mOsm/kg (285-295) L 11/11/21 16:05 Lactic Acid 0.8 mmol/L (0.5-2.2) 11/11/21 17:47 Calcium 9.2 mg/dL (8.5-10.5) 11/11/21 16:05 Total Bilirubin 0.4 mg/dL (0.15-1.2) 11/11/21 16:05 AST 30 U/L (0-32) 11/11/21 16:05 ALT 64 U/L (0-33) H 11/11/21 16:05 Alkaline Phosphatase 92 IU/L (35-105) 11/11/21 16:05 Total Protein 6.7 g/dL (6.6-8.7) 11/11/21 16:05 Albumin 4.4 g/dL (3.5-5.2) 11/11/21 16:05 Globulin 2.3 g/dL (1.3-4.6) 11/11/21 16:05 Lipase 31 U/L (13-60) 11/11/21 16:05 Urine Color Straw (Yellow) 11/11/21 16:55 Urine Appearance Clear (CLEAR) 11/11/21 16:55 Urine pH 8 (5-7) H 11/11/21 16:55 Ur Specific [place] 1.015 (1.005-1.030) 11/11/21 16:55 Urine Protein Neg (Negative) 11/11/21 16:55 Urine Glucose (UA) Norm (Normal) 11/11/21 16:55 Urine Ketones Negative (Negative) 11/11/21 16:55 Urine Blood Trace (Negative) H 11/11/21 16:55 Urine Nitrate Negative (Negative) 11/11/21 16:55 Urine Bilirubin Neg (Negative) 11/11/21 16:55 Prot Sulfosalicylic Acd Negative (Negative) 11/11/21 16:55 Urine Urobilinogen Norm mg/dL (Negative) 11/11/21 16:55 Ur Leukocyte Esterase Negative (Negative) 11/11/21 16:55 Urine RBC None /hpf (0-2) 11/11/21 16:55 Urine WBC None /hpf (0-5) 11/11/21 16:55 Ur Squamous Epith Cells 0-4 /hpf (0-5) H 11/11/21 16:55 Amorphous Sediment Not Reportable 11/11/21 16:55 Urine Bacteria Trace /hpf (NONE) 11/11/21 16:55 Discharge Plan Discharge Patient Disposition: Placed in Observation Admit Provider: Artis Pearson Clinical Impression: Abdominal pain, Enteritis, Nausea vomiting and diarrhea Condition: Stable Discharge Orders: Discharge Order (Routine); Ordered 11/12/21 Ordered By: Artis Pearson Discharge Diet: Regular Discharge Activity: Resume usual activity Coding Level of Care Code ED Research Geneticist for Chg Fwd Exam Comprehensive
[2021-11-11] MEDS: ondansetron 2 mg/ML SDV 2 mL 4 MG IVP ×3 (16:09→21:58)
[2021-11-11] MEDS: lactated ringers 1,000 ML 999 ML IV (16:10)
[2021-11-11 16:13] LABS: Basophils % 0.7 %; Eosinophils % 1.4 %; Hematocrit 40.5 % (37.0-47.0); Hemoglobin 13.7 g/dL (11.5-15.3); Lymphocytes # 0.8 10^3/uL (0.8-4.8); Lymphocytes % 26.2 %; Mean Corpuscular HGB Conc 33.8 g/dL (30.0-36.0); Mean Corpuscular Hemoglobin 31.8 pg (28.0-34.0); Monocytes # 0.5 10^3/uL (0.2-0.9); Monocytes % 16.2 %; Neutrophils # 1.61 10^3/uL (1.8-7.7); Neutrophils % 55.5 %; Nucleated Red Blood Cells % 0 %; Platelet Count 208 10^3/cmm (130-400); Red Blood Count 4.31 10^6/uL (4.1-5.3); Red Cell Distribution Width 11.7 % (12.1-15.1); White Blood Count 2.9 10^3/uL (4.0-10.0)
[2021-11-11 16:24] VITALS: RESP 18
[2021-11-11] MEDS: morphine 4 mg/mL SDV 1 mL IVP ×2 (16:24→17:02)
[2021-11-11 16:31] LABS: Alanine Aminotransferase 64 U/L (0-33); Albumin Level 4.4 g/dL (3.5-5.2); Alkaline Phosphatase 92 IU/L (35-105); Blood Urea Nitrogen 8 mg/dL (6-20); Calcium 9.2 mg/dL (8.5-10.5); Carbon Dioxide 25 mmol/L (22-29); Chloride 103 mmol/L (98-107); Globulin 2.3 g/dL (1.3-4.6); Glomerular Filtration Rate 85.4 mL/min (90-130); Glucose 90 mg/dL (65-115); Lipase 31 U/L (13-60); Osmolality Calculated 284 mOsm/kg (285-295); Sodium 138 mmol/L (136-145); Total Bilirubin 0.4 mg/dL (0.15-1.2); Total Protein 6.7 g/dL (6.6-8.7)
[2021-11-11 16:36] LABS: Anion Gap 13.9 (5-19); Aspartate Amino Transferase 30 U/L (0-32); Potassium 3.9 mmol/L (3.5-5.1)
[2021-11-11] MEDS: iohexol 300 mg/mL 100 mL Btl IV (16:44)
--- NOTE | 2021-11-11 16:46 | PC.NURSE ---
Mom refused CT scan until pain meds given. ordered meds & administered just prior to scan.
--- NOTE | 2021-11-11 16:56 | PC.NURSE ---
Pt is menstruating.
[2021-11-11 17:02] VITALS: RESP 22
[2021-11-11 17:12] LABS: Add Urine Microscopic? YES; Bilirubin Urine Neg (Negative); Blood Urine Trace (Negative); Glucose Urine UA Norm (Normal); Ketones Urine Negative (Negative); Leukocyte Esterase Urine Negative (Negative); Nitrate Urine Negative (Negative); Protein Urine Neg (Negative); Specific Gravity, Urine 1.015 (1.005-1.030); Urine Appearance Clear (CLEAR); Urine Color Straw (Yellow); Urobilinogen Urine Norm (Negative); pH Urine 8 (5-7)
[2021-11-11 17:13] LABS: Add Urine Culture? No; Bacteria Urine TRACE /hpf; Squamous Epithelial Cell Urine 0-4 /hpf (0-5); Sulfosalicylic Acid Urine Negative (Negative)
[2021-11-11 17:55] VITALS: BP 115/60; PULSE 984; RESP 16; O2SAT 96
--- NOTE | 2021-11-11 18:16 | PM.HP ---
Providers/Chief Complaint Primary Care Provider: William Genao MD Chief Complaint: severe abdominal pain History of Present Illness Candice Barth is 30-year-old female with history of prior appendectomy/cholecystectomy, prior ex lap for median arcuate ligament syndrome, intussusception presenting to the emergency with complaints of generalized abdominal pain describes the pain as stabbing and colicky going on for the last few days she was in the ER on 11/07 with similar complain and was managed with I.V Fluid, I.V pain meds, C.T Abdomen and pelvis done on that day showed small bowel enteritis she respnded well and hence she was discharged home on tylenol PRN for abd pain, maalox/pepcid PRN dyspepsia, and zofran PRN nausea/vomiting.As well as augmentin, which she never took as she is allergic to amoxicillin, she took metronidazole. She came back today as she failed to improve. Upon arrival in the ER she was worked up for above mention complain. CT abdomen pelvis w con: 1. Fluid-filled loops of distal small bowel is nonspecific.? Mild enteritis is not excluded. Labs : WBC: 2.9, H&H : 13/40 PLT : 208 Na: 138 , k: 3.9 , BUN/SCR : 8/0.8 Urine analysis is clean Outpatient stool studies have been negative. Review of Systems General: Reports: 10 or more systems reviewed and unremarkable except in HPI and below Const: Denies: fever(s), chills, body aches, change in appetite or diaphoresis Card: Denies: palpitations, edema, swelling of feet/ankles, dyspnea on exertion, orthopnea or leg pain with exertion Resp: Denies: dyspnea, productive cough, wheezing or pain on inspiration GI: Reports: abdominal pain and nausea; Denies: vomiting, diarrhea or constipation : Denies: flank pain Musc: Denies: back pain, extremity pain or extremity swelling Neuro: Denies: headache(s), difficulty walking or confusion Medications/Allergies Home Medications Medication Instructions Recorded Confirmed Last Taken Type calcium carbonate 1,000 1 tab PO TID PRN 7 Days #21 tab 11/07/21 11/08/21 Unknown Rx mg-simethicone 60 mg chewable tablet (Maalox Advanced) cholecalciferol (vitamin D3) 125 125 mcg PO QPM 11/07/21 11/08/21 11/06/21 History mcg (5,000 unit) tablet (Vitamin D3) famotidine 20 mg tablet (Pepcid) 20 mg PO BID PRN 10 Days #20 tab 11/07/21 11/08/21 Unknown Rx minocycline 100 mg capsule 100 mg PO QPM 11/07/21 11/08/21 11/06/21 History naproxen sodium 220 mg tablet 440 mg PO Q12H PRN 11/07/21 11/08/21 11/06/21 21:00 History (Aleve) hyoscyamine sulfate 0.125 mg tablet 0.25 mg PO TID 3 Days #18 tab 11/08/21 11/08/21 Unknown Rx metronidazole 500 mg tablet 500 mg PO BID 10 Days #20 tab 11/08/21 11/08/21 Unknown Rx Allergies Allergy/AdvReac Type Severity Reaction Status Date / Time amoxicillin [From Augmentin] Allergy ADR-Cramping Verified 11/08/21 09:58 of the Muscles azithromycin [From Zithromax] Allergy ADR-Gastrointestinal Verified 11/08/21 09:58 Upset ciprofloxacin [From Cipro] Allergy ADR-Cramping Verified 11/08/21 09:58 of the Muscles clavulanic acid Allergy ADR-Cramping Verified 11/08/21 09:58 [From Augmentin] of the Muscles ketorolac [From Toradol] Allergy ADR-Irritab Verified 11/08/21 09:58 le oxycodone [From Percocet] Allergy ALGY-Hives Verified 11/08/21 09:58 prochlorperazine Allergy Unknown Verified 11/08/21 09:58 [From Compazine] sulfamethoxazole Allergy ADR-Gastrointestinal Verified 11/08/21 09:58 [From Bactrim] Upset trimethoprim [From Bactrim] Allergy ADR-Gastrointestinal Verified 11/08/21 09:58 Upset PFSH Acute PFSH: Medical History No pertinent past medical history neghx: htn,dm,thyroid,PE/DVT Surgical History History of laparotomy (~2008) graft replaced median arcuate ligament Hx of appendectomy (~2012) Hx of cholecystectomy (~2014) Hx of laparoscopy (~2008) release of median arcuate ligament Family History Mother Hypertension Father Hypertension Grandmother Hypertension Maternal Denies family history of Colon cancer Ovarian cancer Diabetes Heart disease Breast cancer Bleeding disorder Uterine cancer Thyroid disease Stroke Social History Additional social history: - Tobacco use: Never Alcohol use: Never Drug use: Never Vitals/I&O/Wt Last Vital Signs Temp 97.8 F 11/11/21 15:37 Pulse 984 H 11/11/21 17:55 Resp 16 11/11/21 17:55 BP 115/60 11/11/21 17:55 Pulse Ox 96 11/11/21 17:55 Weight last 48 hrs Weight 61.235 kg Physical Exam Const: COMMON NORMALS: patient oriented x3 HENMT: COMMON NORMALS: normocephalic, atraumatic, hearing grossly normal bilaterally and external ears normal HEAD & SCALP: normocephalic and atraumatic EXTERNAL EAR: Yes external ears normal Eye: COMMON NORMALS: no scleral icterus GENERAL EYE: appearance normal, both eyes and all related structures Chest: COMMONS NORMALS: normal inspection of the chest and normal palpation of entire chest wall CHEST: Yes Symmetrical chest wall rise Resp: COMMON NORMALS: normal respiratory effort, No retractions, No use of accessory muscles and clear to auscultation bilaterally EFFORT & INSPECTION: Yes symmetric chest movement AUSCULTATION: clear to auscultation bilaterally Cardio: COMMON NORMALS: regular rate, regular rhythm, S1 normal heart sound present, S2 normal heart sound present, No gallops present (Cardio), No murmurs present (Cardio), No rub (Cardio) and Peripheral pulses 2+ throughout RATE: regular rate RHYTHM: regular rhythm HEART SOUNDS: S1 normal heart sound present and S2 normal heart sound present PERIPHERAL PULSES: Peripheral pulses 2+ throughout GI: COMMON NORMALS: Normal to inspection, nondistended, normoactive bowel sounds present, No hepatosplenomegaly present and no masses AUSCULTATION: Yes normoactive bowel sounds RECTAL EXAM: deferred OTHER: Mild generalized abdominal tenderness no guarding no rigidity, no rebound tenderness Extremity: COMMON NORMALS: no clubbing, cyanosis or edema and no pedal edema Neuro: COMMON NORMALS: patient oriented x3 Data : 11/12/21 03:25 11/12/21 03:25 A&P Assessment and plan (1) Abdominal pain: Status: Acute (2) Enteritis: Status: Acute Plan 30-year-old female with history of prior appendectomy/cholecystectomy, prior ex lap for median arcuate ligament syndrome, intussusception presenting to the emergency with complaints of generalized abdominal pain describes the pain as stabbing and colicky. Assessment Abdominal pain: Given the fact that the patient has prior history of median arcuate ligament syndrome status post expiratory laparotomy. Ultrasound abdomen Possible CTA abdomen/MRA abdomen Lactic acid Pain control IV hydration Zofran Hyoscyamine Transaminitis: Follow ultrasound abdomen Hepatitis panel Serum Tylenol level Serum aspirin level Continue to monitor CMP #Possible enteritis: Follow stool studies Continue imipenem IV for now #CODE STATUS: Full code #DVT prophylaxis: Lovenox Attestations Medical Necessity Statement*: Patient needs to be hospital for management of generalized abdominal pain, poor oral intake, need for IV hydration, need for pain control. Anticipated length of stay greater than 2 midnights. Time Spent in Patient Care: Greater than 35 minutes (>than 50% of time spent in counselling and/or direct pt care on unit). Patient needs to be in hospital for the management of abdominal, pain, enteritis, i.v pain control,I.V Hydration,abxs. Coding Level of Care Code Acute Airline Reservationist for Cindy Fwd Exam Comprehensive Diagnoses Abdominal pain R10.9 Enteritis K52.9
[2021-11-11 18:17] LABS: Lactic Sepsis W/Reflex 0.8 mmol/L (0.5-2.2)
--- NOTE | 2021-11-11 19:10 | PC.NURSE ---
Report called to [facility] for MS unit.
[2021-11-11] MEDS: pantoprazole 40 mg SDV IVP (19:56)
[2021-11-11 20:00] VITALS: BP 111/64; PULSE 90; RESP 17; TEMP 36.5; O2SAT 97
[2021-11-11] MEDS: D5-NS 0.45% + KCL 20 mEq 20 MEQ/1,000 ML BAG 150 MEQ IV (21:26)
[2021-11-11 23:57] VITALS: BP 115/71; PULSE 93; RESP 17; TEMP 36.6; O2SAT 97
[2021-11-12] MEDS: ondansetron 2 mg/ML SDV 2 mL 4 MG IVP ×2 (01:39→07:19)
[2021-11-12 03:52] LABS: Basophils % 0.3 %; Hemoglobin 12.2 g/dL (11.5-15.3); Lymphocytes # 0.5 10^3/uL (0.8-4.8); Lymphocytes % 14.8 %; Mean Corpuscular HGB Conc 32.1 g/dL (30.0-36.0); Mean Corpuscular Hemoglobin 31.4 pg (28.0-34.0); Mean Corpuscular Volume 97.9 fl (81-99); Mean Platelet Volume 11.3 fL (7.4-10.4); Monocytes # 0.3 10^3/uL (0.2-0.9); Monocytes % 10.2 %; Neutrophils # 2.41 10^3/uL (1.8-7.7); Neutrophils % 74.4 %; Nucleated Red Blood Cells % 0 %; Platelet Count 187 10^3/cmm (130-400); Red Blood Count 3.88 10^6/uL (4.1-5.3); Red Cell Distribution Width 11.9 % (12.1-15.1); White Blood Count 3.2 10^3/uL (4.0-10.0)
[2021-11-12 04:00] VITALS: BP 107/65; PULSE 85; RESP 16; TEMP 36.6; O2SAT 96
[2021-11-12 04:09] LABS: Lactic Sepsis W/Reflex 0.8 mmol/L (0.5-2.2)
[2021-11-12 04:17] LABS: Alanine Aminotransferase 162 U/L (0-33); Alkaline Phosphatase 213 IU/L (35-105); Anion Gap 14.3 (5-19); Aspartate Amino Transferase 197 U/L (0-32); Blood Urea Nitrogen 6 mg/dL (6-20); Calcium 8.7 mg/dL (8.5-10.5); Carbon Dioxide 22 mmol/L (22-29); Chloride 107 mmol/L (98-107); Glomerular Filtration Rate 85.4 mL/min (90-130); Glucose 132 mg/dL (65-115); Osmolality Calculated 287 mOsm/kg (285-295); Potassium 4.3 mmol/L (3.5-5.1); Sodium 139 mmol/L (136-145); Total Bilirubin 0.4 mg/dL (0.15-1.2)
[2021-11-12] MEDS: D5-NS 0.45% + KCL 20 mEq 20 MEQ/1,000 ML BAG 150 MEQ IV (04:20)
[2021-11-12 07:59] VITALS: BP 99/62; PULSE 75; RESP 12; TEMP 36.8; O2SAT 99
--- NOTE | 2021-11-12 08:20 | USCV_ITS ---
Candice Barth Age: 30 Gender: F : 1990 Exam Date: 11/12/2021 10:16 Ordering Phys: Artis Pearson MD Technologist: Nancy Ferro [place]am [place] [facility] [place]ication: ABD PAIN WITH A CELIAC STENT Type of Exam: Mesenteric Artery Ounces Of Time of Ingestion: Minutes Post-Prandial: Pre-Prandial Post-Prandial SUPERIOR MESENTERIC ARTERY Aorta @ SMA: 63 cm/s cm/s Celiac Artery: 151 cm/s cm/s Hepatic Artery: 134 cm/s cm/s Splenic Artery: 139 cm/s cm/s SMA Prox 243 cm/s cm/s SMA Mid: 141 cm/s cm/s SMA Distal: 131 cm/s cm/s WILLIAM Prox: 115 cm/s cm/s Findings: DID NOT USE ENSURE. PT NAUSEOUS. KNOW STENT CELIAC ART. Resting preprandial velocity were within normal limits Conclusions Normal resting velocities in the splanchnic vessels as mentioned above No significant stenosis in these arteries, based on the preprandial Doppler velocities Dr Anatoly Pitt MD [facility] (Electronically Signed) Final Date: 20 November 2021 10:01 S
[2021-11-12] MEDS: hyoscyamine ODT 0.125 mg Tablet PO (10:36)
[2021-11-12] MEDS: sodium chloride 0.9% 1,000 ML 125 ML IV (10:36)
[2021-11-12 16:00] VITALS: BP 98/63; PULSE 73; RESP 12; O2SAT 97
--- NOTE | 2021-11-12 16:40 | PM.PN ---
Subjective Subjective: Patient continue to have abdominal pain,AST,ALT and ALP have gone up. Stool studies are pending. Medications: Medication Review Details: Generic Name Dose Route Start Last Admin Trade Name Timq PRN Reason Stop Dose Admin Enoxaparin Sodium 40 mg 11/11/21 18:15 11/11/21 20:12 Enoxaparin 40 Mg /0.4 Ml Syringe SUBCUT Not Given Q24H GE[place] Hyoscyamine 0.125 mg 11/12/21 08:14 11/12/21 10:36 Hyoscyamine Odt 0.125 Mg Tablet PO 0.125 mg Q4H PRN Administration abdominal spasm Sodium Chloride 1,000 mls @ 125 m ls/hr 11/11/21 18:15 11/12/21 10:36 Sodium Chloride 0.9% IV 125 mls/hr .Q8H GE[place]GES Administration Imipenem/Cilastati n Sodium 250 100 mls @ 200 mls /hr 11/11/21 19:15 11/12/21 13:48 mg/ Sodium Chlor arianne IV Infused Q6H GEORGES Infusion Protocol Ondansetron HCl 4 mg 11/11/21 18:11 11/12/21 07:19 Ondansetron 2 Mg /Ml Sdv 2 Ml IVP 4 mg Q6H PRN Administration vomiting, or N/V if npo Pantoprazole Sodiu m 40 mg 11/11/21 18:15 11/11/21 19:56 Pantoprazole 40 Mg Sdv IVP 40 mg Q24H [place]GES Administration Vitals/I&O/Wt Last Vital Signs Temp 98.3 F 11/12/21 07:59 Pulse 73 11/12/21 16:00 Resp 12 11/12/21 16:00 BP 98/63 11/12/21 16:00 Pulse Ox 97 11/12/21 16:00 11/12/21 11/12/21 11/12/21 06:59 14:59 22:59 Intake Total 1100 / 2200 1200 / 1200 Balance 1100 / 2200 1200 / 1200 Weight last 48 hrs Weight 61.235 kg Physical Exam Const: COMMON NORMALS: patient oriented x3 HENMT: COMMON NORMALS: normocephalic, atraumatic, hearing grossly normal bilaterally and external ears normal HEAD & SCALP: normocephalic and atraumatic EXTERNAL EAR: Yes external ears normal Eye: COMMON NORMALS: no scleral icterus GENERAL EYE: appearance normal, both eyes and all related structures Chest: COMMONS NORMALS: normal inspection of the chest and normal palpation of entire chest wall CHEST: Yes Symmetrical chest wall rise Resp: COMMON NORMALS: normal respiratory effort, No retractions, No use of accessory muscles and clear to auscultation bilaterally EFFORT & INSPECTION: Yes symmetric chest movement AUSCULTATION: clear to auscultation bilaterally Cardio: COMMON NORMALS: regular rate, regular rhythm, S1 normal heart sound present, S2 normal heart sound present, No gallops present (Cardio), No murmurs present (Cardio), No rub (Cardio) and Peripheral pulses 2+ throughout RATE: regular rate RHYTHM: regular rhythm HEART SOUNDS: S1 normal heart sound present and S2 normal heart sound present PERIPHERAL PULSES: Peripheral pulses 2+ throughout GI: COMMON NORMALS: Normal to inspection, nondistended, normoactive bowel sounds present, No hepatosplenomegaly present and no masses AUSCULTATION: Yes normoactive bowel sounds PALPATION: Yes No hepatosplenomegaly present RECTAL EXAM: deferred OTHER: Mild generalized abdominal tenderness no guarding no rigidity, no rebound tenderness Extremity: COMMON NORMALS: no clubbing, cyanosis or edema and no pedal edema Neuro: COMMON NORMALS: patient oriented x3 Data : 11/12/21 03:25 11/12/21 03:25 Micro: Microbiology 11/11/21 19:07 Blood Culture - Preliminary Blood SPECIMEN COLLECTED 11/11/21 17:47 Blood Culture - Preliminary Blood SPECIMEN COLLECTED A&P Assessment and plan (1) Abdominal pain: Status: Acute (2) Enteritis: Status: Acute Plan 30-year-old female with history of prior appendectomy/cholecystectomy, prior ex lap for median arcuate ligament syndrome, intussusception presenting to the emergency with complaints of generalized abdominal pain describes the pain as stabbing and colicky. Assessment Abdominal pain: Given the fact that the patient has prior history of median arcuate ligament syndrome status post expiratory laparotomy. follow Ultrasound abdomen with arterial and venous duplex scan. Possible CTA abdomen/MRA abdomen Lactic acid Pain control IV hydration Zofran Hyoscyamine Transaminitis: Follow ultrasound abdomen Hepatitis panel Serum Tylenol level Serum aspirin level Continue to monitor CMP #Possible enteritis: Follow stool studies Continue imipenem IV for now #CODE STATUS: Full code #DVT prophylaxis: Lovenox Attestations Medical Necessity Statement*: Patient needs to be in hospital for I.V hydration, transaminitis,need for imaging studies poor oral inatke. Coding Level of Care Code Acute [employer] Diagnoses Abdominal pain R10.9 Enteritis K52.9
[2021-11-12] MEDS: pantoprazole 40 mg SDV IVP (18:24)
[2021-11-12 20:00] VITALS: BP 106/69; PULSE 70; RESP 17; TEMP 36.8; O2SAT 96
== END 2021-11-12 21:10 | disposition home or self-care (01) | DRG 392 ==
LOC: ER 18:26 → MEDSURG 18:28
PROVIDERS: Admitting Provider Internal Medicine; Emergency Provider Family Medicine; PCP Family Medicine; Visit Provider Internal Medicine
DX: K52.9 Noninfective gastroenteritis and colitis, unspecified (principal); R10.9 Unspecified abdominal pain; R74.01 Elevation of levels of liver transaminase levels
CPT/HCPCS: 36415; 74177; 80053; 81001; 83605; 83690; 85025; 87040; 93976; 96361; 96365; 96375; 99285; C9113; J0743; J1650; J2270; J2405; J7030; Q9967

== ENCOUNTER → 2024-09-21 11:21 | Outpatient (BNVA) | payer OTHER, SELFPAY | PROVIDERS: PCP Family Medicine; Visit Provider Nurse Practitioner Women's Health | DX: Z12.4 Encounter for screening for malignant neoplasm of cervix (principal) | CPT/HCPCS: 87624 ==

== ENCOUNTER → 2024-10-05 15:24 | Outpatient (BNVA) | payer OTHER, SELFPAY | PROVIDERS: PCP Family Medicine; Visit Provider Nurse Practitioner Women's Health | DX: R10.2 Pelvic and perineal pain (principal); D25.1 Intramural leiomyoma of uterus | CPT/HCPCS: 76830 ==

== ENCOUNTER 2025-01-18 08:31 | Outpatient (RCR) | payer OTHER, SELFPAY | END 2025-02-01 23:59 | disposition home or self-care (01) | LOC: SPT 08:31 | PROVIDERS: Visit Provider Obstetrics & Gynecology | DX: N94.10 Unspecified dyspareunia (principal) | CPT/HCPCS: 97161 ==

== ENCOUNTER 2025-02-02 05:00 | Outpatient (RCR) | payer OTHER, SELFPAY | END 2025-03-04 23:59 | disposition home or self-care (01) | LOC: SPT 05:00 | PROVIDERS: Visit Provider Obstetrics & Gynecology | DX: N94.10 Unspecified dyspareunia (principal) | CPT/HCPCS: 97110 ==

== ENCOUNTER 2025-07-05 06:30 | Outpatient (RCR) | payer OTHER, SELFPAY | END 2025-08-04 23:59 | disposition home or self-care (01) | LOC: SPT 06:30 | PROVIDERS: Visit Provider Obstetrics & Gynecology | DX: N94.10 Unspecified dyspareunia (principal) | CPT/HCPCS: 97110 ==